=== PATIENT | male | born 1960 | race American Indian/Alaskan Native ===

== ENCOUNTER 2016-09-04 16:02 | Emergency (ER) | payer OTHER ==
--- NOTE | 2016-09-04 19:55 | Emergency Department Report ---
HPI - General Chief Complaint: Extremity Injury, Upper Time Seen by Provider: 09/04/16 19:37 - HPI HPI: Patient is a 56-year-old male presents to ED complaining of recurrent joint pain and swelling just been intermittent for the past 2 years. 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 Patient states history of gout on his feet but does not take any medication for gout. Patient states his left hand began hurting on Sunday. Patient states pain has gotten worse than his joints of his hands and elbow. Patient states is becoming very difficult to move his left fingers due to pain and swelling she denies any injury or fall or trauma to the hand Patient denies fever/chills/nausea/vomiting/abdominal pain/chest pain/shortness of breath/loss of sensation. ED Past Medical Hx - Social History Smoking Status: Current Some Day Smoker Substance Use Type: Alcohol - Medications Home Medications: Home Medications Medication Instructions Recorded Confirmed Last Taken Type Clindamycin [Clindamycin CAP] 300 mg PO BID #10 cap 09/04/16 Unknown Rx HYDROcodone/APAP 5-325 [[place] 1 each PO Q6HR PRN #12 tablet 09/04/16 Unknown Rx 5/325] Naproxen [Naprosyn] 500 mg PO BID #20 tablet 09/04/16 Unknown Rx predniSONE [Deltasone] 20 mg PO QDAY #4 tablet 09/04/16 Unknown Rx ED Review of Systems ROS: Stated complaint: HAND SWELLING Other details as noted in HPI Constitutional: denies: chills, fever Eyes: denies: eye pain, eye discharge, vision change ENT: denies: ear pain, throat pain Respiratory: denies: cough, shortness of breath, wheezing Cardiovascular: denies: chest pain, palpitations, edema Endocrine: no symptoms reported Gastrointestinal: denies: abdominal pain, nausea, vomiting, diarrhea, constipation, hematemesis Genitourinary: denies: urgency, dysuria, frequency, hematuria Musculoskeletal: denies: back pain, joint swelling, arthralgia Skin: denies: rash, lesions Neurological: denies: headache, weakness, paresthesias Psychiatric: denies: anxiety, depression Hematological/Lymphatic: denies: easy bleeding, easy bruising Physical Exam - Physical Exam Vital Signs: Vital Signs 09/04/16 16:12 Temperature 97.5 F L Pulse Rate 62 Respiratory 18 Rate Blood Pressure 138/87 O2 Sat by Pulse 100 Oximetry Physical Exam: GENERAL: Alert and oriented x3, no apparent distress, Normal Gait, atraumatic. HEAD: Head is normocephalic and a-traumatic. EYES: Extra ocular muscles are intact. Pupils are equal, round, and reactive to light and accommodation. EARS: symetrical, atraumatic, non tender, ear canal clear and moderate cerumen, tympanic membrance non inflamed. gross auditory nml bilaterally. NOSE: Nose symetrical, Nontender,Nares appeared normal. MOUTH:Mouth is well hydrated and without lesions. Tonsils nonerythematous or swollen, Uvula midline, Tongue not elevated. Mucous membranes are moist. Posterior pharynx clear, no exudate or lesions. Patent airways. NECK: Supple. Non edematous, No carotid bruits. No lymphadenopathy or thyromegaly. No C-spine tenderness LUNGS: Symetrical with respiration, No wheezing, no rales or crackles, CTAB. HEART: S1, S2 present, regular rate and rhythm without murmur, no rubs, no gallops. ABDOMEN: No organomegaly was noted,Positive bowel sounds, soft, and non- distended. . Nontender to palpation on all Quadrants, NO CVA tenderness. EXTREMITIES/MUSCULOSKELETAL: No cyanosis, clubbing, rash, lesions or edema. Full ROM bilaterally. UE/LE Pulses 2+ bilaterally. LE and UE 5+ strength bilaterally, straight leg raise negative bilaterally. NEUROLOGIC: No focal Deficit, Cranial nerves II through XII are grossly intact. No loss of sensation SKIN: Warm and dry, No lesions, No ulceration or induration present. ED Course Vital Signs 09/04/16 16:12 Temperature 97.5 F L Pulse Rate 62 Respiratory 18 Rate Blood Pressure 138/87 O2 Sat by Pulse 100 Oximetry ED Medical Decision Making - Radiology Data Radiology results: report reviewed, image reviewed FINAL REPORT EXAM: XR HAND 3 LT HISTORY: swellimg/pain TECHNIQUE: Three views of the left hand PRIORS: None. FINDINGS: There deformity of the distal ulna with subchondral cyst formation and fragmentation of the ulnar styloid most likely due to old trauma. There mild subchondral sclerosis of the radial ulnar joint. The bones are normally aligned and mineralized. There is no evidence of acute fracture. The soft tissues are unremarkable. IMPRESSION: No evidence of acute fracture or subluxation. 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 Transcribed By: JAREN Dictated By: UNIQUE HAHN MD Electronically Authenticated By: UNIQUE HAHN MD Signed Date/Time: 09/04/162034 - Medical Decision Making 56-year-old male presents with arthritic joint pain ED course: Patient received 60 mg of prednisone and 2 tablets nORCO X-ray of the hand ordered. X-ray of the hand shows. See above Discussed the patient will need to follow-up with primary care physician or rod tape operator. Discussed pain medication, antibiotic and complete days of prednisone to help with inflammation. Patient does not look ill-appearing. Patient joint are intact. Patient's vital signs are normal. No fever Patient is in no respiratory distress. Discussed with patient to follow up with rod tape operator as soon as possible. Patient verbally states she understands and will comply to follow-up. - Differential Diagnosis 1. Gouty arthritis 2. Osteoarthritis pain 3. Cellulitis 4. Critical care attestation.: If time is entered above; I have spent that time in minutes in the direct care of this critically ill patient, excluding procedure time. ED Disposition Clinical Impression: Arthritis pain, hand Arthralgia Qualifiers: Joint pain location: hand Laterality: right Qualified Code(s): M25.541 - Pain in joints of right hand Disposition: DISCHARGED TO HOME OR SELFCARE Is pt being admited?: No Does the pt Need Aspirin: No Condition: Stable Instructions: Osteoarthritis (ED), Arthralgia (ED), Heat Pack Application (ED) Prescriptions: Clindamycin [Clindamycin CAP] 300 mg PO BID #10 cap HYDROcodone/APAP 5-325 [[place] 5/325] 1 each PO Q6HR PRN #12 tablet PRN Reason: Pain Naproxen [Naprosyn] 500 mg PO BID #20 tablet predniSONE [Deltasone] 20 mg PO QDAY #4 tablet Referrals: PRIMARY CARE, [Primary Care Provider] - 3-5 Days JT LOPEZ MD [Referring] - 3-5 Days NICKIE ROSENTHAL MD [Referring] - 3-5 Days YUN DERAS MD [Referring] - 3-5 Days JIGNA ROLDAN MD [Referring] - 3-5 Days MACKENZIE AMADOR MD [Referring] - 3-5 Days Forms: Accompanied Note, Work/School Release Form(ED) Time of Disposition: 21:00
[2016-09-04] MEDS ORDERED: NORCO 5/325 PO ONE (20:05)
[2016-09-04] MEDS ORDERED: DELTASONE PO ONE (20:05)
--- NOTE | 2016-09-04 20:39 | XRay Report ---
FINAL REPORT EXAM: XR HAND 3 LT HISTORY: swellimg/pain TECHNIQUE: Three views of the left hand PRIORS: None. FINDINGS: There deformity of the distal ulna with subchondral cyst formation and fragmentation of the ulnar styloid most likely due to old trauma. There mild subchondral sclerosis of the radial ulnar joint. The bones are normally aligned and mineralized. There is no evidence of acute fracture. The soft tissues are unremarkable. IMPRESSION: No evidence of acute fracture or subluxation. 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
[2016-09-04 21:17] VITALS: BP 132/82
== END 2016-09-04 21:30 | disposition home or self-care (01) ==
LOC: ED 16:02
DX: M25.541 Pain in joints of right hand (principal); F17.200 Nicotine dependence, unspecified, uncomplicated
CPT/HCPCS: 73130; 99283; J7512

== ENCOUNTER 2016-09-25 16:47 | Emergency (ER) | payer OTHER ==
[2016-09-25 17:30] VITALS: BP 135/84
[2016-09-25 17:53] LABS: Basophils % (Auto) 0.5 % (0.0-1.8); Eosinophils % (Auto) 2.1 % (0.0-4.3); Hematocrit 40.7 % (35.5-45.6); Hemoglobin 13.9 gm/dl (11.8-15.2); Mean Corpuscular HGB Conc 34 % (32-34); Mean Corpuscular Hemoglobin 31 pg (28-32); Mean Corpuscular Volume 91 fl (84-94); Platelet Count 244 K/mm3 (140-440); Red Blood Count 4.46 M/mm3 (3.65-5.03); Red Cell Distribution Width 13.6 % (13.2-15.2); White Blood Count 6.5 K/mm3 (4.5-11.0)
[2016-09-25 18:13] LABS: Alanine Aminotransferase 14 units/L (7-56); Albumin 3.9 g/dL (3.9-5); Albumin/Globulin Ratio 1.3 %; Alkaline Phosphatase 100 units/L (35-129); Anion Gap 18 mmol/L; Blood Urea Nitrogen 20 mg/dL (9-20); Calcium 9.1 mg/dL (8.4-10.2); Carbon Dioxide 24 mmol/L (22-30); Chloride 102.8 mmol/L (98-107); Glucose 94 mg/dL (75-100); Potassium 4.4 mmol/L (3.6-5.0); Sodium 140 mmol/L (137-145); Total Protein 6.8 g/dL (6.3-8.2)
--- NOTE | 2016-09-25 18:23 | Emergency Department Report ---
Entered by KAREN RAMAN, acting as scribe for NEO HUDDLESTON PA. Chief Complaint: Pain General Stated Complaint: SWELLING BILAT KNEES/HANDS/ANKLES/ELBOWS Time Seen by Provider: 09/25/16 17:42 - HPI History of Present Illness: 56 y/o male with Hx of Gout presents c/o severe pain as a result of bilateral swelling to his elbows, knees and ankles that began 2 days ago and continuously worsens. Pt denies SOB and kidney problems. Pt notes being given antibiotics and painkillers for previous episode of Sx in [place]. - ROS Review of Systems: as noted in HPI - Exam Vital Signs: Vital Signs 09/25/16 17:22 Temperature 98.5 F Pulse Rate 59 L Respiratory 16 Rate Blood Pressure 135/84 O2 Sat by Pulse 100 Oximetry Physical Exam: General: 56 y/o male in no acute distress. Well-developed, well-nourished. CV: Regular rate and rhythm. No murmurs rubs or gallops. Lungs: Clear to auscultation bilaterally. Abdomen: No tenderness to palpation. No guarding or rebound tenderness. Normal bowel sounds. Mini Neuro: Alert and oriented 3. MSE screening note: Focused history and physical exam performed. Due to findings the following was ordered: ED Disposition for MSE Condition: Stable This documentation as recorded by the scribe,KAREN RAMAN,accurately reflects the service I personally performed and the decisions made by me,NEO HUDDLESTON PA.
[2016-09-25 18:32] LABS: Erythrocyte Sedimentation Rate 21 mm/Hr (0-20)
[2016-09-25 18:33] LABS: Bilirubin,Urine NEG (Negative); Blood,Urine SM (Negative); Ketones,Urine NEG (Negative); Leukocyte Esterase,Urine NEG (Negative); Mucus,Urine FEW /HPF; Nitrite,Urine NEG (Negative); Urobilinogen,Urine < 2.0 mg/dL (<2.0)
== END 2016-09-25 21:45 | disposition left against medical advice (07) ==
LOC: ED 16:47
DX: M79.89 Other specified soft tissue disorders (principal); Z53.21 Procedure and treatment not carried out due to patient leaving prior to being seen by health care provider
CPT/HCPCS: 36415; 80053; 81001; 82040; 84550; 85025; 85652; 86618